=== PATIENT | male | born 1975 | race Caucasian/White ===

== ENCOUNTER 2020-10-05 12:38 | Outpatient (REF) | payer BC, SELFPAY | END 2020-10-05 12:39 | disposition home or self-care (01) | LOC: HO.LAB 12:38 | PROVIDERS: Visit Provider Internal Medicine | DX: Z20.822 Contact with and (suspected) exposure to COVID-19 (principal) | CPT/HCPCS: 36415; C9803; U0003; U0005 ==

== ENCOUNTER 2020-10-29 15:16 | Inpatient (IN) | payer BC, SELFPAY ==
--- NOTE | ~2020-10-29 | XR_ITS ---
EXAMINATION: XR CHEST CLINICAL INFORMATION: Chest pain. COMPARISON: None TECHNIQUE: Frontal view of the chest was obtained. FINDINGS: No significant abnormality is noted involving the heart, lungs, mediastinum, bony thorax or soft tissues. XR/XR chest 1V IMPRESSION: No acute cardiopulmonary process.
[2020-10-29 15:23] VITALS: BP 117/81; PULSE 71; RESP 16; TEMP 36.6; O2SAT 99
[2020-10-29 16:59] VITALS: BP 123/82; PULSE 63; RESP 16; TEMP 36.6; O2SAT 97; BMI 28.6
--- NOTE | 2020-10-29 17:09 | ED_ITS ---
HPI - Chest Pain General Chief Complaint: Chest Pain Stated Complaint: mild chest pain Time Seen by Provider: 10/29/20 17:09 Source: patient Mode of arrival: ambulatory Limitations: no limitations History of Present Illness HPI narrative: Patient knows significant coronary artery disease uses cocaine off and on last time patient used cocaine was 3 days ago. Comes here for chest pain started 13:00 when he was at work feels pain is sharp was going to his right jaw and left arm is been going on continuously since 13:00 off and on get better and then worse. Patient had similar pain about 10 years ago had a stress test and echo which was negative. Patient is smoker with history of hyperlipidemia and GERD and strong family history of coronary artery disease in his father Related Data Home Medications Medication Instructions Recorded Confirmed omeprazole 1 cap PO DAILY 10/29/20 10/29/20 Allergies Allergy/AdvReac Type Severity Reaction Status Date / Time No Known Allergies Allergy Verified 10/29/20 17:02 [No Known Allergies*] Review of Systems Review of Systems: Constitutional : No Weight loss, No Fever, No Chills ENT/Mouth : No sore throat, No Rhinorrhea Eyes: No Eye Pain, No Swelling Cardiovascular : + Chest Pain, no palpitations Respiratory : No Cough, No Sputum, no shortness of breath Gastrointestinal : no Nausea, No Vomiting, No Diarrhea, No abdominal Pain, no black stools Genitourinary : No Dysuria, No Urinary Frequency Musculoskeletal : No joint pain, No Myalgias, No Joint Swelling Skin : No Skin Lesions, No rash Neuro : No Weakness, No Numbness, No Dizziness, No Headache Psych : No Anxiety/Panic, No Depression Heme/Lymph: No Bruising, No Lymphadenopathy Endocrine : No Polyuria, No Polydipsia All other systems reviewed and are negative [facility] Past Medical History Medical History (Updated 10/29/20 @ 20:50 by Elmo Tomlinson MD) Cocaine use GERD (gastroesophageal reflux disease) Hyperlipidemia Social History Social History Alcohol intake: current Alcohol intake frequency: a few times a week Smoking Status: Current every day smoker Use of substances other than those prescribed or required for medical reasons: Yes Substance Use Type: Crack/Cocaine Last Used Substance: Days (ago) Advance Directives: No Advance Directives Information Provided: No Physical Exam Vital Signs: Vital Signs: Last Vital Signs Temp 97.9 F 10/29/20 22:04 Pulse 64 10/29/20 22:04 Resp 14 10/29/20 22:04 BP 96/61 10/29/20 22:04 Pulse Ox 95 10/29/20 22:04 Body Mass Index 28.6 Appearance: Alert. Oriented X3. No acute distress. Eyes: Pupils equal, round and reactive to light. ENT: Pharynx normal. Neck: Normal inspection. Neck supple. CVS: Normal heart rate and rhythm. Pulses normal. Respiratory: No respiratory distress. Breath sounds normal. Abdomen: Soft and nontender. Bowel sounds are present, no mass palpable, no CVA tenderness Skin: Skin warm and dry. Normal skin color. Normal skin turgor. Extremities: No lower extremity edema. Neuro: Oriented X 3. No motor deficit. No sensory deficit. Course Course Course Narrative: Patient chest pain for last 5 hours with positive troponin normal EKGs. We will will check for Delta change in troponin. Patient received aspirin and nitropaste was applied. Patient did cocaine 3 days ago and did have any chest pain while using cocaine MDM - Chest Pain MDM Narrative Medical decision making narrative: Patient with chest pain likely ischemic although there is no EKG changes there is slight delta increase in troponin from 144 to 226. Case discussed with Dr. Ann cutter and edge trimmer okay to start on a heparin plan to do stress test tomorrow Differential Diagnosis Differential diagnosis: Likely chest pain Medical Records Data Attestation: I reviewed the patient's medical records. Lab Data Attestation: I reviewed the patient's lab results. Result diagrams: 10/29/20 17:40 10/29/20 17:40 Labs: Lab Results 10/29/20 10/29/20 10/29/20 Range/Units 17:40 17:40 17:40 WBC 13.1 H (4.8-10.8) X10*3/uL RBC 5.06 (4.60-5.80) X10*6/uL Hgb 15.6 (14.0-18.0) g/dl Hct 46.6 (42-52) % MCV 92.1 (80-98) fL MCH 30.8 (27.0-33.0) pg MCHC 33.5 (31.0-36.0) g/dl RDW 12.6 (11.0-16.0) % Plt Count 430 H (160-400) X10*3/uL MPV 8.6 L (9.4-12.4) fL Immature Gran % (Auto) 0.3 (0.0-0.4) % Neut % (Auto) 60.3 (45-73) % Lymph % (Auto) 34.0 (20-40) % [place] % (Auto) 4.4 (2-11) % Eos % (Auto) 0.7 (0-4) % Baso % (Auto) 0.3 (0-2) % Lymph # (Auto) 4.4 (1.2-4.9) X10*3/uL [place] # (Auto) 0.6 (0.1-1.2) X10*3/uL Eos # (Auto) 0.1 (0.0-0.4) X10*3/uL Baso # (Auto) 0.0 (0.0-0.2) X10*3/uL Abs Immat Gran (auto) 0.04 H (0.00-0.03) X10*3/uL Absolute Neuts (auto) 7.9 (2.0-8.3) X10*3/uL Absolute Nucleated RBC 0.000 (0.0-0.012) X10*3/uL Nucleated RBC % (auto) 0.0 (0.0-0.2) /100WBC PT 11.9 (10.8-13.0) SEC INR 1.0 (0.9-1.1) APTT 34.0 (24.1-38.0) SEC D-Dimer < 200 NG/ML Sodium 139 (135-145) mmol/L Potassium 4.5 (3.3-5.1) mmol/L Chloride 107 (96-108) mmol/L Carbon Dioxide 25 (22-29) mmol/L Anion Gap 12 (12-20) BUN 9 (9-16) mg/dL Creatinine 0.83 (0.5-1.4) mg/dL Estim Creat Clear Calc 112.0 Estimated GFR > 60 Random Glucose 93 (60-115) mg/dL Calcium 9.0 (8.4-10.2) mg/dL Troponin I High Sens (<3.5-35.0) ng/L COVID-19 (FAB) (Negative) COVID-19 Clin Com 10/29/20 10/29/20 10/29/20 Range/Units 17:40 19:50 21:08 WBC (4.8-10.8) X10*3/uL RBC (4.60-5.80) X10*6/uL Hgb (14.0-18.0) g/dl Hct (42-52) % MCV (80-98) fL MCH (27.0-33.0) pg MCHC (31.0-36.0) g/dl RDW (11.0-16.0) % Plt Count (160-400) X10*3/uL MPV (9.4-12.4) fL Immature Gran % (Auto) (0.0-0.4) % Neut % (Auto) (45-73) % Lymph % (Auto) (20-40) % [place] % (Auto) (2-11) % Eos % (Auto) (0-4) % Baso % (Auto) (0-2) % Lymph # (Auto) (1.2-4.9) X10*3/uL [place] # (Auto) (0.1-1.2) X10*3/uL Eos # (Auto) (0.0-0.4) X10*3/uL Baso # (Auto) (0.0-0.2) X10*3/uL Abs Immat Gran (auto) (0.00-0.03) X10*3/uL Absolute Neuts (auto) (2.0-8.3) X10*3/uL Absolute Nucleated RBC (0.0-0.012) X10*3/uL Nucleated RBC % (auto) (0.0-0.2) /100WBC PT (10.8-13.0) SEC INR (0.9-1.1) APTT (24.1-38.0) SEC D-Dimer NG/ML Sodium (135-145) mmol/L Potassium (3.3-5.1) mmol/L Chloride (96-108) mmol/L Carbon Dioxide (22-29) mmol/L Anion Gap (12-20) BUN (9-16) mg/dL Creatinine (0.5-1.4) mg/dL Estim Creat Clear Calc Estimated GFR Random Glucose (60-115) mg/dL Calcium (8.4-10.2) mg/dL Troponin I High Sens 144.6 H 226.7 H D (<3.5-35.0) ng/L COVID-19 (FAB) Negative (Negative) COVID-19 Clin Com See Note ECG Data ECG #1: Attestation: I personally reviewed and interpreted this ECG as follows: Interpretation: Normal sinus rhythm heart rate 73 beats per minute normal axis normal intervals normal ST-T T-waves no acute ischemic changes impression normal EKG ECG #2: Attestation: I personally reviewed and interpreted this ECG as follows: Prior ECG tracings: available for review Interpretation: Heart rate 59 beats per minute normal intervals normal axis normal sinus rhythm normal ST T wave no acute ischemic changes impression normal EKG Critical Care Time Critical Care Time Critical Care Time: Yes Total Critical Care Time: 35 Attestation: I spent 35 minutes of critical care, with interventions, assessments, speaking to patient, and retirement sales consultant, Discharge Plan Discharge Clinical Impression: Non-ST elevated myocardial infarction (non-STEMI) Patient Disposition: Admitted As Inpatient
[2020-10-29] MEDS: Aspirin 81 MG TAB.CHEW 162 MG PO (17:33)
[2020-10-29 17:43] VITALS: PULSE 63
[2020-10-29 17:45] LABS: MANUAL DIFF FLAG NO
[2020-10-29 17:48] LABS: Basophils Percent Auto 0.3 % (0-2); Eosinophils Absolute Auto 0.1 X10*3/uL (0.0-0.4); Eosinophils Percent Auto 0.7 % (0-4); Hematocrit 46.6 % (42-52); Hemoglobin 15.6 g/dl (14.0-18.0); Imm Gran Abs Auto 0.04 X10*3/uL (0.00-0.03); Imm Gran Pct Auto 0.3 % (0.0-0.4); Lymphocytes Absolute Auto 4.4 X10*3/uL (1.2-4.9); Mean Corpuscular HGB Conc 33.5 g/dl (31.0-36.0); Mean Corpuscular Hemoglobin 30.8 pg (27.0-33.0); Mean Corpuscular Volume 92.1 fL (80-98); Mean Platelet Volume 8.6 fL (9.4-12.4); Monocytes Absolute Auto 0.6 X10*3/uL (0.1-1.2); Monocytes Percent Auto 4.4 % (2-11); Neutrophils Absolute Auto 7.9 X10*3/uL (2.0-8.3); Neutrophils Percent Auto 60.3 % (45-73); Platelet Count 430 X10*3/uL (160-400); Red Blood Count 5.06 X10*6/uL (4.60-5.80); Red Cell Distribution Width 12.6 % (11.0-16.0); White Blood Count 13.1 X10*3/uL (4.8-10.8)
[2020-10-29 17:54] LABS: Prothrombin Time 11.9 SEC (10.8-13.0)
[2020-10-29 17:58] LABS: D Dimer < 200 NG/ML
[2020-10-29 18:00] VITALS: BP 113/79; PULSE 61; RESP 15; TEMP 36.7; O2SAT 98
[2020-10-29 18:07] LABS: Anion Gap 12 (12-20); Blood Urea Nitrogen 9 mg/dL (9-16); Carbon Dioxide 25 mmol/L (22-29); Chloride 107 mmol/L (96-108); Estimated Glomerular Filt Rate > 60; Glucose Random 93 mg/dL (60-115); Potassium 4.5 mmol/L (3.3-5.1); Sodium 139 mmol/L (135-145)
[2020-10-29 18:20] LABS: Troponin-I High Sensitivity 144.6 ng/L (<3.5-35.0)
--- NOTE | 2020-10-29 18:22 | ECG_ITS ---
Test Reason : CHEST PAIN Blood Pressure : / mmHG Vent. Rate : 059 BPM Atrial Rate : 059 BPM P-R Int : 130 ms QRS Dur : 096 ms QT Int : 410 ms P-R-T Axes : 030 031 025 degrees QTc Int : 405 ms Sinus bradycardia Otherwise normal ECG When compared with ECG of 29-OCT-2020 15:24, No significant change was found Referred By: Elmo Tomlinson Electronically Signed By:Ajith Ann
[2020-10-29] MEDS: Nitroglycerin 2 % Oint 1 GM Packet 0.5 INCH TRANSDERMA (18:55)
[2020-10-29 18:57] VITALS: BP 122/82; PULSE 60; RESP 16; O2SAT 98
[2020-10-29 20:24] LABS: Troponin-I High Sensitivity 226.7 ng/L (<3.5-35.0)
[2020-10-29] MEDS: Heparin Sodium,Porcine 5,000 UNIT/ML VIAL 4000 UNIT IVPUSH (20:40)
[2020-10-29] MEDS: Heparin Sodium,Porcine/1/2NS 25,000 UNIT/250 ML IV.SOLN 9.66 UNIT IVCONT (20:41)
[2020-10-29 21:25] LABS: COVID-19 Test Negative (Negative)
[2020-10-29 22:04] VITALS: BP 96/61; PULSE 64; RESP 14; TEMP 36.6; O2SAT 95
--- NOTE | 2020-10-29 23:00 | PM.IMHP ---
History of Present Illness Date of Service: 10/29/20 Chief Complaint: Chest pain This is a 45-year-old male with past medical history of hyperlipidemia, GERD who presents to the hospital with complaint of chest pain. Patient describes the pain as heavy, midsternal, radiating to the jaw and left arm, not associated with any palpitations, no shortness of breath, no cough, no sputum production. Patient reports using cocaine about 3 days prior to presentation to the hospital. But usually does not get chest pain with cocaine use. He denies having any nausea vomiting, abdominal pain no diarrhea constipation, no lower extremity edema, no urinary symptoms. No numbness tingling or weakness. On arrival to the ED hemodynamically stable with no significant abnormal vitals, labs are significant for WBC count of 13.1, platelet count 430, otherwise unremarkable labs except for high sensitivity troponin of 144, repeat to 26.7. Patient EKG for any ST T wave changes Cardiology was consulted by ED physician and patient has been started on heparin GGT Past medical history is obtained as below and confirmed with patient Review of Systems Review of Systems: Yes all other systems are reviewed and are negative [facility] Medical History (Updated 10/29/20 @ 23:05 by Lakeisha Montemayor MD) Cocaine use GERD (gastroesophageal reflux disease) Hyperlipidemia Pertinent family history: He reports that his father had 3 bypass surgeries but does not remember age of onset Social History Alcohol intake: current Alcohol intake frequency: a few times a week Smoking Status: Current every day smoker Use of substances other than those prescribed or required for medical reasons: Yes Substance Use Type: Crack/Cocaine Last Used Substance: Days (ago) Advance Directives: No Advance Directives Information Provided: No Meds Allergies Allergy/AdvReac Type Severity Reaction Status Date / Time No Known Allergies Allergy Verified 10/29/20 17:02 [No Known Allergies*] Active Medications: Current Medications Generic Name Dose Route Start Last Admin Trade Name Freq PRN Reason Stop Dose Admin Heparin Sodium/Sodium Chloride 25,000 unit in 250 mls @ 0 mls/hr 10/29/20 20:30 10/29/20 20:41 IVCONT 12 units/kg/hr .Q0M [place] 9.66 mls/hr Administration Protocol Per Protocol Home Medications Medication Instructions Recorded Confirmed Last Taken Type omeprazole 1 cap PO DAILY 10/29/20 10/29/20 10/29/20 09:00 History Physical Exam Vital Signs and Narrative: Vital Signs: Last Vital Signs Temp 97.9 F 10/29/20 22:04 Pulse 64 10/29/20 22:04 Resp 14 10/29/20 22:04 BP 96/61 10/29/20 22:04 Pulse Ox 95 10/29/20 22:04 Body Mass Index 28.6 Const: General: cooperative and no acute distress Orientation/consciousness: patient oriented x3 Eyes: General: appearance normal, both eyes and all related structures Resp: Effort & Inspection: normal respiratory effort and able to speak in complete sentences Auscultation: clear to auscultation bilaterally Cardio: Rate: regular rate Rhythm: regular rhythm GI: Palpation (GI): Soft to palpation Auscultation: normal bowel sounds Skin: General skin exam: no rashes or lesions noted Neuro: General: patient oriented x3 Cognition (Neuro): normal cognition Extrem: General: Yes normal to inspection and Yes no pedal edema Results Labs CBC and Chem 7: 10/29/20 17:40 10/29/20 17:40 Labs: Laboratory Results - last 24 hr 10/29/20 10/29/20 10/29/20 17:40 17:40 17:40 MCV 92.1 MCH 30.8 MCHC 33.5 RDW 12.6 Plt Count 430 H MPV 8.6 L Immature Gran % (Auto) 0.3 Neut % (Auto) 60.3 Lymph % (Auto) 34.0 [place] % (Auto) 4.4 Eos % (Auto) 0.7 Baso % (Auto) 0.3 Lymph # (Auto) 4.4 [place] # (Auto) 0.6 Eos # (Auto) 0.1 Baso # (Auto) 0.0 Abs Immat Gran (auto) 0.04 H Absolute Neuts (auto) 7.9 Absolute Nucleated RBC 0.000 Nucleated RBC % (auto) 0.0 PT 11.9 INR 1.0 APTT 34.0 D-Dimer < 200 Anion Gap 12 Estim Creat Clear Calc 112.0 Estimated GFR > 60 Random Glucose 93 Calcium 9.0 Troponin I High Sens COVID-19 (FAB) COVID-19 Clin Com 10/29/20 10/29/20 10/29/20 17:40 19:50 21:08 MCV MCH MCHC RDW Plt Count MPV Immature Gran % (Auto) Neut % (Auto) Lymph % (Auto) [place] % (Auto) Eos % (Auto) Baso % (Auto) Lymph # (Auto) [place] # (Auto) Eos # (Auto) Baso # (Auto) Abs Immat Gran (auto) Absolute Neuts (auto) Absolute Nucleated RBC Nucleated RBC % (auto) PT INR APTT D-Dimer Anion Gap Estim Creat Clear Calc Estimated GFR Random Glucose Calcium Troponin I High Sens 144.6 H 226.7 H D COVID-19 (FAB) Negative COVID-19 Clin Com See Note Imaging Radiologist's Impressions: Impressions Chest X-Ray 10/29/20 17:09 IMPRESSION: No acute cardiopulmonary process. Assessment and Plan (1) Non-ST elevated myocardial infarction (non-STEMI): Status: Acute (2) Chest pain: Status: Acute (3) Cocaine use: Status: Inactive This is a 45-year-old male with past medical history of cocaine abuse, HLD, and GERD who presents to the hospital with chest pain # chest pain - most likely NSTEMI secondary to cocaine use versus due to coronary artery disease - has elevated troponin as above - EKG no changes of ST T wave abnormality Plan: - patient has been started on heparin GGT per Cardiology recommendation - will obtain echocardiogram - cardiology consulted # NSTEMI - as above - will trend troponin levels - heparin GGT - aspirin daily # cocaine use - last use 3 days ago # HLD - will start him on statin # GERD - continue omeprazole DVT prophylaxis: Heparin GGT
[2020-10-30] VITALS (7 sets, daily range): BP systolic 95–127; BP diastolic 51–76; PULSE 62–73; RESP 16–18; TEMP 36.1–37; O2SAT 95–98
--- NOTE | 2020-10-30 | ECG_ITS ---
Test Reason : CP Blood Pressure : / mmHG Vent. Rate : 066 BPM Atrial Rate : 066 BPM P-R Int : 120 ms QRS Dur : 102 ms QT Int : 400 ms P-R-T Axes : 012 030 049 degrees QTc Int : 419 ms Normal sinus rhythm Normal ECG When compared to the previous EKG of No significant changes seen Referred By: Nestor Stauffer Electronically Signed By:MARIBEL ANDERS MD
[2020-10-30 00:55] LABS: Troponin-I High Sensitivity 555.5 ng/L (<3.5-35.0)
[2020-10-30 03:51] LABS: Basophils Absolute Auto 0.1 X10*3/uL (0.0-0.2); Basophils Percent Auto 0.4 % (0-2); Eosinophils Absolute Auto 0.2 X10*3/uL (0.0-0.4); Eosinophils Percent Auto 1.4 % (0-4); Hematocrit 43.3 % (42-52); Hemoglobin 14.3 g/dl (14.0-18.0); Imm Gran Abs Auto 0.05 X10*3/uL (0.00-0.03); Imm Gran Pct Auto 0.4 % (0.0-0.4); Lymphocytes Absolute Auto 5.5 X10*3/uL (1.2-4.9); Lymphocytes Percent Auto 47.4 % (20-40); MANUAL DIFF FLAG SCAN; Mean Corpuscular Hemoglobin 30.6 pg (27.0-33.0); Mean Corpuscular Volume 92.5 fL (80-98); Mean Platelet Volume 8.6 fL (9.4-12.4); Monocytes Absolute Auto 0.8 X10*3/uL (0.1-1.2); Neutrophils Percent Auto 43.4 % (45-73); Platelet Count 398 X10*3/uL (160-400); Red Blood Count 4.68 X10*6/uL (4.60-5.80); Red Cell Distribution Width 12.7 % (11.0-16.0); SCAN SMEAR FLAG 1; White Blood Count 11.6 X10*3/uL (4.8-10.8)
[2020-10-30 04:02] LABS: PTT Heparin Drip 54.2 SEC (53-77.9)
[2020-10-30 04:12] LABS: Anion Gap 11 (12-20); Blood Urea Nitrogen 10 mg/dL (9-16); Calcium 8.7 mg/dL (8.4-10.2); Carbon Dioxide 26 mmol/L (22-29); Chloride 105 mmol/L (96-108); Creatinine Clr Calc Pharmacy 113.4; Estimated Glomerular Filt Rate > 60; Glucose Random 98 mg/dL (60-115); Potassium 3.9 mmol/L (3.3-5.1); Sodium 138 mmol/L (135-145)
[2020-10-30 04:22] LABS: SLIDE REVIEW VERIFIED
[2020-10-30] MEDS: Omeprazole 20 MG CAPSULE.DR PO (06:13)
[2020-10-30] MEDS: Atorvastatin Calcium 40 MG TABLET PO (07:56)
[2020-10-30] MEDS: 0.9 % Sodium Chloride Flush 3 ML SYRINGE IVFLUSH ×2 (07:56→15:35)
[2020-10-30] MEDS: Aspirin 81 MG TAB.CHEW PO (07:56)
[2020-10-30 10:22] LABS: PTT Heparin Drip 35.1 SEC (53-77.9)
[2020-10-30] MEDS: Heparin Sodium,Porcine 5,000 UNIT/ML VIAL 6400 UNIT IVPUSH (10:58)
[2020-10-30] MEDS: Clopidogrel Bisulfate 300 MG TABLET PO (12:27)
[2020-10-30] MEDS: Nitroglycerin 0.4 MG TAB.SUBL SUBLINGUAL ×2 (12:27→15:35)
--- NOTE | 2020-10-30 12:54 | P.DS_ITS ---
DS: Providers Provider Date of Service: 10/30/20 Date of admission: 10/29/20 20:50 Primary care physician: Unknown Physician Consults: 10/30/20 11:59 Consult to Cardiology Routine Consulting Provider: Ajith Ann Reason for consultation: chest pain Has provider been notified: Yes DS: Diagnosis Discharge Diagnosis (1) Non-ST elevated myocardial infarction (non-STEMI): Status: Acute (2) Chest pain: Status: Acute (3) Cocaine use: Status: Acute DS: Medications Discharge Medications Home Medications: Home Medications Medication Instructions Recorded Confirmed omeprazole 1 cap PO DAILY 10/29/20 10/29/20 DS: Summary Hospital Course Hospital Course: History of presenting illness Chief Complaint: Chest pain This is a 45-year-old male with past medical history of hyperlipidemia, GERD who presents to the hospital with complaint of chest pain. Patient describes the pain as heavy, midsternal, radiating to the jaw and left arm, not associated with any palpitations, no shortness of breath, no cough, no sputum production. Patient reports using cocaine about 3 days prior to presentation to the hospital. But usually does not get chest pain with cocaine use. He denies having any nausea vomiting, abdominal pain, no diarrhea, no constipation, no lower extremity edema, no urinary symptoms. No numbness tingling or weakness. On arrival to the ED hemodynamically stable with no significant abnormal vitals, labs are significant for WBC count of 13.1, platelet count 430, otherwise unremarkable labs except for high sensitivity troponin of 144, repeat to 226.7. Patient EKG negative for any ST, T wave changes, mom a sinus bradycardia heart rate 59 Cardiology was consulted by ED physician and patient has been started on iv heparin GGT Hospital course Non ST-elevation [place] a gentleman with cocaine use, 45-year-old male with past medical history of cocaine abuse, HLD, and GERD patient smokes half pack of cigarettes a day, previously was on statins that he stop using for last 3 years, presents to the hospital with chest pain and noted to have elevated troponin with no acute EKG change patient continued to have intermittent chest discomfort being treated with IV morphine, IV heparin drip, statins, aspirin patient seen by cementer oil well Dr. Ann he recommend patient to be transferred to [facility] for cardiac catheterization, he received 1 dose of Plavix 300 mg, upon discharge will continue current medications. Patient declined nicotine patch. History of GERD will continue Prilosec History of hyperlipidemia placed on statins Time Spent with Patient Time attestation: Total time spent providing and/or coordinating discharge services: Discharge coordination time: Greater than 30 minutes Physical Exam Vital Signs: Vital Signs: Last Vital Signs Temp 98.2 F 10/30/20 11:18 Pulse 73 10/30/20 12:27 Resp 18 10/30/20 11:18 BP 102/66 10/30/20 12:27 Pulse Ox 96 10/30/20 11:18 Body Mass Index 28.6 General patient resting comfortably in no acute distress. Neck is supple no JVD. CVS regular rate rhythm, no murmur regurg or gallop Respiratory lungs clear to auscultation, no respiratory distress, no wheeze, no rhonchi. Gastrointestinal abdomen soft, nontender, bowel sounds audible, no guarding , no rigidity. Extremities no clubbing cyanosis or edema. Neuro nonfocal , speech clear. Skin no rash Psych good insight DS: Data Data Completed and Pending Labs on day of discharge: Laboratory Results - last 24 hr 10/29/20 10/29/20 10/29/20 17:40 17:40 17:40 WBC 13.1 H RBC 5.06 Hgb 15.6 Hct 46.6 MCV 92.1 MCH 30.8 MCHC 33.5 RDW 12.6 Plt Count 430 H MPV 8.6 L Immature Gran % (Auto) 0.3 Neut % (Auto) 60.3 Lymph % (Auto) 34.0 [place] % (Auto) 4.4 Eos % (Auto) 0.7 Baso % (Auto) 0.3 Lymph # (Auto) 4.4 [place] # (Auto) 0.6 Eos # (Auto) 0.1 Baso # (Auto) 0.0 Abs Immat Gran (auto) 0.04 H Absolute Neuts (auto) 7.9 Absolute Nucleated RBC 0.000 Nucleated RBC % (auto) 0.0 Smear Tech's Comments PT 11.9 INR 1.0 APTT 34.0 PTT (Heparin Protocol) D-Dimer < 200 Sodium 139 Potassium 4.5 Chloride 107 Carbon Dioxide 25 Anion Gap 12 BUN 9 Creatinine 0.83 Estim Creat Clear Calc 112.0 Estimated GFR > 60 Random Glucose 93 Calcium 9.0 Troponin I High Sens COVID-19 (FAB) COVID-19 Clin Com 10/29/20 10/29/20 10/29/20 17:40 19:50 21:08 WBC RBC Hgb Hct MCV MCH MCHC RDW Plt Count MPV Immature Gran % (Auto) Neut % (Auto) Lymph % (Auto) [place] % (Auto) Eos % (Auto) Baso % (Auto) Lymph # (Auto) [place] # (Auto) Eos # (Auto) Baso # (Auto) Abs Immat Gran (auto) Absolute Neuts (auto) Absolute Nucleated RBC Nucleated RBC % (auto) Smear Tech's Comments PT INR APTT PTT (Heparin Protocol) D-Dimer Sodium Potassium Chloride Carbon Dioxide Anion Gap BUN Creatinine Estim Creat Clear Calc Estimated GFR Random Glucose Calcium Troponin I High Sens 144.6 H 226.7 H D COVID-19 (FAB) Negative COVID-19 [facility] See Note 10/30/20 10/30/20 10/30/20 00:23 03:35 03:35 WBC 11.6 H RBC 4.68 Hgb 14.3 Hct 43.3 MCV 92.5 MCH 30.6 MCHC 33.0 RDW 12.7 Plt Count 398 MPV 8.6 L Immature Gran % (Auto) 0.4 Neut % (Auto) 43.4 L Lymph % (Auto) 47.4 H [place] % (Auto) 7.0 Eos % (Auto) 1.4 Baso % (Auto) 0.4 Lymph # (Auto) 5.5 H [place] # (Auto) 0.8 Eos # (Auto) 0.2 Baso # (Auto) 0.1 Abs Immat Gran (auto) 0.05 H Absolute Neuts (auto) 5.0 Absolute Nucleated RBC 0.000 Nucleated RBC % (auto) 0.0 Smear Tech's Comments VERIFIED PT INR APTT PTT (Heparin Protocol) D-Dimer Sodium 138 Potassium 3.9 Chloride 105 Carbon Dioxide 26 Anion Gap 11 L BUN 10 Creatinine 0.82 Estim Creat Clear Calc 113.4 Estimated GFR > 60 Random Glucose 98 Calcium 8.7 Troponin I High Sens 555.5 H D COVID-19 (FAB) COVID-19 Clin Com 10/30/20 10/30/20 03:35 09:45 WBC RBC Hgb Hct MCV MCH MCHC RDW Plt Count MPV Immature Gran % (Auto) Neut % (Auto) Lymph % (Auto) [place] % (Auto) Eos % (Auto) Baso % (Auto) Lymph # (Auto) [place] # (Auto) Eos # (Auto) Baso # (Auto) Abs Immat Gran (auto) Absolute Neuts (auto) Absolute Nucleated RBC Nucleated RBC % (auto) Smear Tech's Comments PT INR APTT PTT (Heparin Protocol) 54.2 35.1 L D D-Dimer Sodium Potassium Chloride Carbon Dioxide Anion Gap BUN Creatinine Estim Creat Clear Calc Estimated GFR Random Glucose Calcium Troponin I High Sens COVID-19 (FAB) COVID-19 Clin Com Discharge Plan Discharge Patient Disposition: Xfer [facility] Referrals: Physician,Unknown [Primary Care Provider] - Discharge Medications: New atorvastatin 40 mg Tablet 80 mg PO DAILY Qty: 1 RF: 0 aspirin 81 mg Tablet,Chewable 81 mg PO DAILY Qty: 1 RF: 0 nitroglycerin [Nitrostat] 0.4 mg Tablet, Sublingual 0.4 mg sublingual Q5MX3 PRN (Reason: Chest Pain) Qty: 1 RF: 0 Continued omeprazole 20 mg capsule,delayed release(DR/EC) 1 cap PO DAILY RF: 0 Discharge Orders: Discharge Order (Routine); Ordered 10/30/20 Ordered By: Nestor Stauffer Diet: low fat, low cholesterol Activity on Discharge: bedrest Stand Alone Forms: Patient Portal Discharge page Care Plan Goals: Bedrest continue IV heparin drip, statins aspirin, morphine and nitrates for chest pain Health Concerns: Non ST-elevation [place]/cocaine use disorder/tobacco use disorder Plan of Treatment: Transferred to [facility] for cardiac catheterization continue current treatment
--- NOTE | 2020-10-30 12:59 | PM.CNCAR ---
History of Present Illness History of Present Illness Date of Service: 10/30/20 Requesting physician: Nestor Stauffer Chief complaint: ACS Narrative: [age] gentleman with background history of gastroesophageal reflux disease, tobacco abuse, alcohol use as well as cocaine use who presented to [facility] yesterday after developing chest discomfort jaw discomfort and arm discomfort. He used cocaine 2-3 days ago. He drank alcohol with cocaine. He said he started noticing jaw discomfort and left arm discomfort along with chest pressure yesterday. The symptoms persisted for some time and he ended up in the ER. His EKG was normal. He was given nitroglycerin with improvement in symptoms. At the time of interview he had some 3/10 chest discomfort ongoing. His EKG again was repeated which showed normal sinus rhythm without any ischemic changes. We also repeated a posterior EKG which was normal. He was given 1 dose of nitroglycerin his pressure went away. He was already on heparin drip. We will load him with 300 of Plavix. Review of Systems Review of Systems: Chest pressure Yes all other systems are reviewed and are negative PMFSH Past Medical History Medical History Cocaine use GERD (gastroesophageal reflux disease) Hyperlipidemia Social History Social History Household Members: Family Housing: Apartment Do you presently have visiting nurse or other home services: No Alcohol intake: current Alcohol intake frequency: a few times a week Smoking Status: Current every day smoker Tobacco Type: Cigarette Smoked in Last 30 Days: Yes Patient Interested in Nicotine Replacement: No Patient Given Instructions on How to Stop Smoking: Yes Date Education Initiated: 10/30/20 Second Hand Smoke Exposure: Yes Use of substances other than those prescribed or required for medical reasons: Yes Substance Use Type: Crack/Cocaine Substance Use Frequency: Occasionally Last Used Substance: Days (ago) Currently Displaying Signs/Symptoms of Drug Intoxication Withdrawal: No Any prior treatment program specific to substance use: No Have you been hit, kicked, punched, or otherwise hurt by someone within the past year? If so, by whom?: No Do you feel safe in your current relationship?: No Current Relationship Is there a partner from a previous relationship who is making you feel unsafe now?: No Are you made to feel afraid or neglected: No Advance Directives: No Advance Directives Information Provided: No Do you have thoughts of harming others: None Do you have a plan to hurt others: No Plan Recently lost weight without trying: Yes Meds Allergies Allergy/AdvReac Type Severity Reaction Status Date / Time No Known Allergies Allergy Verified 10/29/20 17:02 [No Known Allergies*] Active Medications: Current Medications Generic Name Dose Route Start Last Admin Trade Name Freq PRN Reason Stop Dose Admin Acetaminophen 650 mg 10/29/20 23:57 Acetaminophen 325 Mg Tablet PO Q6H PRN Pain, Mild (Pain Scale 1-3) Aspirin 81 mg 10/30/20 09:00 10/30/20 07:56 Aspirin 81 Mg Tab.Chew PO 81 mg DAILY DENTON Administration Atorvastatin Calcium 40 mg 10/30/20 09:00 10/30/20 07:56 Atorvastatin Calcium 40 Mg Tablet PO 40 mg DAILY DENTON Administration Docusate Sodium 100 mg 10/29/20 23:57 Docusate Sodium 100 Mg Capsule PO DAILY PRN Constipation Heparin Sodium (Porcine) 3,200 unit 10/30/20 10:32 Heparin Sodium,Porcine 5,000 Unit/Ml Vial 40 unit/kg (3200 unit) IVPUSH BOLUS PRN 40 unit/kg - Heparin Protocol Protocol Heparin Sodium (Porcine) 6,400 unit 10/30/20 10:32 10/30/20 10:58 Heparin Sodium,Porcine 5,000 Unit/Ml Vial 80 unit/kg (6400 unit) 6,400 unit IVPUSH Administration BOLUS PRN 80 unit/kg - Heparin Protocol Protocol Heparin Sodium/Sodium Chloride 25,000 unit in 250 mls @ 0 mls/hr 10/29/20 20:30 10/30/20 10:58 IVCONT 16 units/kg/hr .Q0M DENTON 12.88 mls/hr Titration Protocol Per Protocol Morphine Sulfate 4 mg 10/29/20 23:57 Morphine Sulfate 4 Mg/Ml Cartridge IVPUSH ONCE PRN Chest pain Nitroglycerin 0.4 mg 10/30/20 12:19 10/30/20 12:27 Nitroglycerin 0.4 Mg Tab.Subl SUBLINGUAL 0.4 mg Q5MX3 PRN Administration Chest Pain Omeprazole 20 mg 10/30/20 06:30 10/30/20 06:13 Omeprazole 20 Mg Capsule.Dr PO 20 mg DAILY@0630 DENTON Administration Ondansetron HCl 4 mg 10/29/20 23:57 Ondansetron Hcl 4 Mg/2 Ml Vial IVPUSH Q8H PRN Nausea and Vomiting Sodium Chloride 3 ml 10/30/20 00:00 10/30/20 07:56 0.9 % Sodium Chloride Flush 3 Ml Syringe IVFLUSH 3 ml QSHIFT DENTON Administration Home Medications Medication Instructions Recorded Confirmed Last Taken Type omeprazole 1 cap PO DAILY 10/29/20 10/29/20 10/29/20 09:00 History Physical Exam Vital Signs: Vital Signs: Last Vital Signs Temp 98.2 F 10/30/20 11:18 Pulse 73 10/30/20 12:27 Resp 18 10/30/20 11:18 BP 102/66 10/30/20 12:27 Pulse Ox 96 10/30/20 11:18 Body Mass Index 28.6 GENERAL APPEARANCE: in no acute distress, well developed, well nourished. HEENT: unremarkable. HEAD: normocephalic, atraumatic. NECK/THYROID: no carotid bruit, no jugular venous distention. SKIN: no suspicious lesions, warm and dry. HEART: no murmurs, regular rate and rhythm, S1, S2 normal. LUNGS: Bilateral crackles at bases. ABDOMEN: normal, bowel sounds present, soft, nontender, nondistended. EXTREMITIES: no clubbing, cyanosis, or edema. PERIPHERAL PULSES: equal. NEUROLOGIC: nonfocal, alert and oriented. PSYCH: mood/affect full range. Results Labs and Meds Result diagrams: 10/30/20 03:35 10/30/20 03:35 Lab results: Laboratory Results - last 24 hr 10/29/20 10/29/20 10/29/20 17:40 17:40 17:40 WBC 13.1 H RBC 5.06 Hgb 15.6 Hct 46.6 MCV 92.1 MCH 30.8 MCHC 33.5 RDW 12.6 Plt Count 430 H MPV 8.6 L Immature Gran % (Auto) 0.3 Neut % (Auto) 60.3 Lymph % (Auto) 34.0 [place] % (Auto) 4.4 Eos % (Auto) 0.7 Baso % (Auto) 0.3 Lymph # (Auto) 4.4 [place] # (Auto) 0.6 Eos # (Auto) 0.1 Baso # (Auto) 0.0 Abs Immat Gran (auto) 0.04 H Absolute Neuts (auto) 7.9 Absolute Nucleated RBC 0.000 Nucleated RBC % (auto) 0.0 Smear Tech's Comments PT 11.9 INR 1.0 APTT 34.0 PTT (Heparin Protocol) D-Dimer < 200 Sodium 139 Potassium 4.5 Chloride 107 Carbon Dioxide 25 Anion Gap 12 BUN 9 Creatinine 0.83 Estim Creat Clear Calc 112.0 Estimated GFR > 60 Random Glucose 93 Calcium 9.0 Troponin I High Sens COVID-19 (FAB) COVID-19 Clin Com 10/29/20 10/29/20 10/29/20 17:40 19:50 21:08 WBC RBC Hgb Hct MCV MCH MCHC RDW Plt Count MPV Immature Gran % (Auto) Neut % (Auto) Lymph % (Auto) [place] % (Auto) Eos % (Auto) Baso % (Auto) Lymph # (Auto) [place] # (Auto) Eos # (Auto) Baso # (Auto) Abs Immat Gran (auto) Absolute Neuts (auto) Absolute Nucleated RBC Nucleated RBC % (auto) Smear Tech's Comments PT INR APTT PTT (Heparin Protocol) D-Dimer Sodium Potassium Chloride Carbon Dioxide Anion Gap BUN Creatinine Estim Creat Clear Calc Estimated GFR Random Glucose Calcium Troponin I High Sens 144.6 H 226.7 H D COVID-19 (FAB) Negative COVID-19 Clin Com See Note 10/30/20 10/30/20 10/30/20 00:23 03:35 03:35 WBC 11.6 H RBC 4.68 Hgb 14.3 Hct 43.3 MCV 92.5 MCH 30.6 MCHC 33.0 RDW 12.7 Plt Count 398 MPV 8.6 L Immature Gran % (Auto) 0.4 Neut % (Auto) 43.4 L Lymph % (Auto) 47.4 H [place] % (Auto) 7.0 Eos % (Auto) 1.4 Baso % (Auto) 0.4 Lymph # (Auto) 5.5 H [place] # (Auto) 0.8 Eos # (Auto) 0.2 Baso # (Auto) 0.1 Abs Immat Gran (auto) 0.05 H Absolute Neuts (auto) 5.0 Absolute Nucleated RBC 0.000 Nucleated RBC % (auto) 0.0 Smear Tech's Comments VERIFIED PT INR APTT PTT (Heparin Protocol) D-Dimer Sodium 138 Potassium 3.9 Chloride 105 Carbon Dioxide 26 Anion Gap 11 L BUN 10 Creatinine 0.82 Estim Creat Clear Calc 113.4 Estimated GFR > 60 Random Glucose 98 Calcium 8.7 Troponin I High Sens 555.5 H D COVID-19 (FAB) COVID-19 Clin Com 10/30/20 10/30/20 03:35 09:45 WBC RBC Hgb Hct MCV MCH MCHC RDW Plt Count MPV Immature Gran % (Auto) Neut % (Auto) Lymph % (Auto) [place] % (Auto) Eos % (Auto) Baso % (Auto) Lymph # (Auto) [place] # (Auto) Eos # (Auto) Baso # (Auto) Abs Immat Gran (auto) Absolute Neuts (auto) Absolute Nucleated RBC Nucleated RBC % (auto) Smear Tech's Comments PT INR APTT PTT (Heparin Protocol) 54.2 35.1 L D D-Dimer Sodium Potassium Chloride Carbon Dioxide Anion Gap BUN Creatinine Estim Creat Clear Calc Estimated GFR Random Glucose Calcium Troponin I High Sens COVID-19 (FAB) COVID-19 Clin Com ECG Attestation: I personally reviewed and interpreted this ECG as follows: ECG interpretation date: 10/30/20 ECG interpretation time: 13:03 Prior ECG tracings: available for review Interpretation: Sinus rhythm, normal axis normal EKG. QTC is 419 milliseconds. We also performed a posterior EKG which did not show any ischemic changes. Imaging Radiologist's impression: Impressions Chest X-Ray 10/29/20 17:09 IMPRESSION: No acute cardiopulmonary process. Assessment and Plan (1) Non-ST elevated myocardial infarction (non-STEMI): Status: Acute (2) Cocaine use: Status: Acute 45-year-old gentleman with background history of substance abuse who is presenting with chest pain. He has ruled in for NSTEMI. His EKG is benign. He is currently pain free. He has been loaded with Plavix 300 mg once a day. He is on aspirin and heparin drip already. His blood pressures are borderline. We discussed about treatment options including medical management versus transfer for cardiac catheterization. We have decided to transfer the patient for cardiac catheterization. I have explained the procedure in great detail to him including the pros and cons and potential complications. He is agreeable. We will transfer him to [facility] and potentially do this tomorrow. If he starts having chest discomfort then we will of the telephone claims representative team to assess him. Currently his symptoms are under control and he does not have any dynamic EKG changes including normal posterior EKG. I suspect this is likely coronary will spasm but we have to understand if he has coronary disease given longstanding smoking and cocaine use. He is agreeable to take medications right now. Thank you for allowing me to participate in the care of your patient. Please feel free to contact me if you have any questions.
--- NOTE | 2020-10-30 13:00 | MHC.CM.PN ---
pt will discharge to [facility] today
[2020-10-30 13:14] LABS: Cholesterol 221 mg/dL; HDL Cholesterol 30 mg/dL; LDL Cholesterol Calculated 122 mg/dl; Triglycerides 345 mg/dL
[2020-10-30 17:19] LABS: PTT Heparin Drip 106.4 SEC (53-77.9)
--- NOTE | 2020-10-30 17:49 | PC.NURSE ---
Report called to Nurse Polanco at [facility] at 1710.
== END 2020-10-30 18:30 | disposition short-term general hospital (02) | DRG 190 ==
LOC: HO.ED 20:50 → HO.IMC 23:06
PROVIDERS: Admitting Provider Internal Medicine; Emergency Provider Internal Medicine; Visit Provider Hospitalist
DX: I21.4 Non-ST elevation (NSTEMI) myocardial infarction (principal); F14.10 Cocaine abuse, uncomplicated; E78.5 Hyperlipidemia, unspecified; I25.10 Atherosclerotic heart disease of native coronary artery without angina pectoris; K21.9 Gastro-esophageal reflux disease without esophagitis; F10.10 Alcohol abuse, uncomplicated; F17.210 Nicotine dependence, cigarettes, uncomplicated; Z71.6 Tobacco abuse counseling; Z20.822 Contact with and (suspected) exposure to COVID-19; Z79.82 Long term (current) use of aspirin; Z79.899 Other long term (current) drug therapy
CPT/HCPCS: 36415; 71045; 80048; 80061; 84484; 85025; 85379; 85610; 85730; 87635; 93005; 96374; 99285; 99291

== ENCOUNTER → 2020-11-14 11:28 | Outpatient (BNVA) | payer BC, SELFPAY | PROVIDERS: Visit Provider Nurse Practitioner Family ==

== ENCOUNTER → 2020-12-30 08:06 | Outpatient (REF) | payer BC, SELFPAY ==
--- NOTE | 2020-12-30 08:21 | CA_ITS ---
Transthoracic Echocardiogram Limited Patient (Last, First, Middle): Chris Castañeda, Gender: Male Date of : 1975 Age: 45 Procedure Date: 12/30/2020 Procedure Type: Transthoracic Echocardiogram Limited Location: OP Height: 167.64 cm Weight: 86.18 kg BSA: 1.96 m2 Heart Rate: bpm BP: 128 / 78 mmHg Public Information Specialist: IVÁN Referring MD: Lulú Barajas GUEST SERVICES ASSISTANT-C Symptoms: R07.9 - Chest pain, unspecified Study Quality: Good ECG Rhythm: Sinus Conclusions: - Normal biventricular function. - Normal diastolic function. Findings Left Ventricle Normal left ventricular size, thickness, and systolic function. The visually estimated ejection fraction is between 55-60%. There is no evidence of regional wall motion abnormalities. Diastolic function is normal for age. Right Ventricle Normal right ventricular cavity size and systolic function. Venous The inferior vena cava is normal in size and collapses greater than 50% with inspiration. Pericardium/Pleural There is no evidence of pericardial effusion. Prior Study Comparison No prior study available for comparison. Measurements 2D Linear Measurements IVSd: 0.90 0.6-0.9/0.6-1.0 cm LVIDd: 4.57 3.9-5.3/4.2-5.9 cm LVIDd Index: 2.33 2.4-3.2/2.2-3.1 cm/m2 LVIDs: 2.74 2.0-3.6 cm LVPWd: 0.90 0.7-1.1 cm LV Mass: 170.19 67-162/88-224 g LV Mass Index: 86.83 43-95/49-115 g/m2 2D Systolic Function EF 4C: 49.50 >55% EF 2C: 50.20 >55% EF BiP: 48.00 >55% Mitral Valve MV Pk E: 0.83 MV PK A: 0.67 MV Decel Time: 176.00 E/A: 1.20 E'Lateral: 13.30 E'Medial: 10.70 E/E' Med: 7.70 E/E' Lat: 6.20 PHT: 52.00 MVA PHT: 4.23 Decel Converse: 4.68 Diastolic Function MV Pk E: 0.83 MV Pk A: 0.67 E/A: 1.20 E'Medial: 10.70 E/E' Med: 7.70 E' Laterial: 13.30 E/E' Lat: 6.20 Updated in Other Vendor System with Status of Final Ajith Ann MD electronically signed on 12/31/2020 5:49:13 PM with status of Final
== END ==
LOC: HO.CARD 08:06
PROVIDERS: Visit Provider Nurse Practitioner Family
DX: R07.9 Chest pain, unspecified (principal); I21.4 Non-ST elevation (NSTEMI) myocardial infarction
CPT/HCPCS: 93308

== ENCOUNTER 2021-01-17 11:37 | Outpatient (REF) | payer BC, SELFPAY ==
[2021-01-17 12:08] LABS: COVID-19 Test Negative (Negative)
== END 2021-01-17 11:38 | disposition home or self-care (01) ==
LOC: HO.LAB 11:37
PROVIDERS: Visit Provider Internal Medicine
DX: Z20.822 Contact with and (suspected) exposure to COVID-19 (principal)
CPT/HCPCS: 36415; 87635; C9803

== ENCOUNTER → 2021-01-23 09:10 | Outpatient (BNVA) | payer BC, SELFPAY | PROVIDERS: PCP Internal Medicine Sports Medicine; Visit Provider Internal Medicine Cardiovascular Disease ==